=== PATIENT | female | born 1965 | race Two or more races ===

== ENCOUNTER 2020-02-21 18:58 | Emergency (ER) | payer OTHER ==
[~2020-02-21] VITALS: Ht 170.2 cm; Wt 75.0 kg
[2020-02-21] MEDS ORDERED: methylPREDNISolone SOD SUCC PF 125 MG/2 ML VIAL. IV ONE (19:30)
[2020-02-21] MEDS ORDERED: IV NORMAL SALINE 1000ML BAG 1,000 ML IV ONE (19:30)
[2020-02-21] MEDS ORDERED: FAMOTIDINE 20 MG/2 ML VIAL IVP ONE (19:30)
[2020-02-21] MEDS ORDERED: diphenhydrAMINE 50 MG/ML VIAL IVP ONE (19:30)
[2020-02-21] MEDS ORDERED: PRED20TA PO (20:01)
--- NOTE | 2020-02-21 20:02 | PHYS DOC ---
General Adult EDM: Chief Complaint: ALLERGIC REACTION HPI: HPI: Patient is a 54 year old female presents to the ED with a chief complaint of allergic reaction. Son who is a bowling ball mold assembler states that the symptoms are not present for the last 5 days. States that patient started lisinopril 3 months ago and the rash has been on and off since then. Patient denies new lotions, clothes, soaps, detergents. No food allergies per patient as well. There are no respiratory complaints. Patient complains of rash all over her body. Review of Systems: Review of Systems: Constitutional: Denies fever or chills. [] Eyes: Denies change in visual acuity. [] HENT: Denies nasal congestion or sore throat. [] Respiratory: Denies cough or shortness of breath. [] Cardiovascular: Denies chest pain or edema. [] Musculoskeletal: Denies back pain or joint pain. [] Integument: Complains of diffuse rash all over her body. Neurologic: Denies headache, focal weakness or sensory changes. [] Heart Score: Risk Factors: Risk Factors: DM, Current or recent (<one month) smoker, HTN, HLP, family history of CAD, obesity. Risk Scores: Score 0 - 3: 2.5% MACE over next 6 weeks - Discharge Home Score 4 - 6: 20.3% MACE over next 6 weeks - Admit for Clinical Observation Score 7 - 10: 72.7% MACE over next 6 weeks - Early Invasive Strategies Current Medications: Current Medications Medications (Trade) Dose Ordered Sig/Linda Start Time Stop Time Status Last Admin Dose Admin Diphenhydramine HCl (Benadryl) 25 mg 1X ONCE 02/21/20 19:30 02/21/20 19:31 DC 02/21/20 19:35 25 MG Famotidine (Pepcid Vial) 20 mg 1X ONCE 02/21/20 19:30 02/21/20 19:31 DC 02/21/20 19:35 20 MG Methylprednisolone Sodium Succinate (SOLU-Medrol 125MG VIAL) 125 mg 1X ONCE 02/21/20 19:30 02/21/20 19:31 DC 02/21/20 19:34 125 MG Sodium Chloride 1,000 ml @ 1,000 mls/hr 1X ONCE 02/21/20 19:30 02/21/20 20:29 02/21/20 19:35 1,000 MLS/HR Allergies: Allergies: Allergies Coded Allergies Type Severity Reaction Last Updated Verified No Known Drug Allergies 02/21/20 No Physical Exam: PE: Constitutional: Well developed, well nourished, no acute distress, non-toxic appearance. [] HENT: Normocephalic, atraumatic Eyes: EOMI Neck: Normal range of motion, Supple Respiratory: No respiratory distress Skin: Acute papular rash on her upper extremities lower extremities face and torso Neurologic: Alert and oriented X 3 EKG: EKG: [] Radiology/Procedures: Radiology/Procedures: [] Course & Med Decision Making: Course & Med Decision Making Ordered IV fluids, Solu-Medrol 125 mg IV, Benadryl 25 mg IV, Pepcid 20 mg IV. Patient was told to stop taking her lisinopril and follow-up with her PCP on Sunday for replacement blood pressure medication. Patient will be discharged home on oral steroids. Discussed plan of care with patient. Patient is instructed to follow up with PCP in one to 2 days. Appropriate discharge instructions given to patient to return to the ED or to seek immediate medical evaluation. Patient is instructed to return to the ED if symptoms worsen or if any concerns. Dragon Disclaimer: Dragon Disclaimer: This electronic medical record was generated, in whole or in part, using a voice recognition dictation system. Departure Departure Impression: Primary Impression: Allergic reaction Additional Impression: Dermatitis Disposition: HOME, SELF-CARE Condition: STABLE Referrals: NO PCP (PCP) Patient Instructions: Contact Dermatitis, Rash Additional Instructions: Discussed plan of care with patient. Patient is instructed to follow up with PCP in one to 2 days. Appropriate discharge instructions given to patient to return to the ED or to seek immediate medical evaluation. Patient is instructed to return to the ED if symptoms worsen or if any concerns. Scripts Prednisone (PREDNISONE) 20 Mg Tablet 2 TAB PO DAILY for 5 Days, #10 TAB Prov: JACQUI JOHNSTON DO 02/21/20 Justicifation of Admission Dx: Justifications for Admission: Justification of Admission Dx: JACQUI Mcgraw DO Feb 21, 2020 20:01
[2020-02-21 20:06] VITALS: BP 107/60
== END 2020-02-21 20:11 | disposition home or self-care (01) ==
LOC: ER 18:58
DX: T78.40XA Allergy, unspecified, initial encounter (principal); L30.9 Dermatitis, unspecified
CPT/HCPCS: 96374; 96375; 99285; J1200; J2930; J3490; J7030

== ENCOUNTER 2020-02-29 17:20 | Emergency (ER) | payer OTHER ==
[~2020-02-29] VITALS: Ht 165.1 cm; Wt 74.0 kg
[~2020-02-29 17:20] MED LIST: PRED20TA PO
[2020-02-29 17:41] VITALS: BP 148/87
[2020-02-29] MEDS ORDERED: PERM60CR11 TP (20:45)
[2020-02-29] MEDS ORDERED: HYDR25TA PO (20:45)
[2020-02-29] MEDS ORDERED: LORA0.5T96 PO (20:45)
--- NOTE | 2020-02-29 20:45 | PHYS DOC ---
Past Medical History Past Medical History: No Pertinent History Past Surgical History: No Surgical History Smoking Status: Never Smoker Alcohol Use: None General Adult EDM: Chief Complaint: SKIN RASH/ABSCESS HPI: HPI: Patient is a 54 year old female who presents with 1 month history of skin rash with itching. Patient states it originally started in the web of her fingers and has slowly progressed up to her axilla her waistline and down to her ankles. Patient states that she has been using prescribed prednisone and ointment that was given to her on her last visit here without relief. Patient denies fever chills, vision changes, any nasal congestion or sore throat, cough or shortness of breath. Patient denies chest pain or swelling of her extremities. Patient denies any abdominal pain, nausea, vomiting, diarrhea or constipation. Patient denies any back pain or joint pains. Patient denies any problems urinating. Patient denies headaches focal weaknesses or sensory changes. Patient denies any swollen glands. Patient states her only problem has the itching and the rash that she cannot get rid of. Patient states no one else living in her home has the same symptoms. Review of Systems: Review of Systems: Constitutional: Denies fever or chills. Eyes: Denies change in visual acuity. HENT: Denies nasal congestion or sore throat. Respiratory: Denies cough or shortness of breath. Cardiovascular: Denies chest pain or edema. GI: Denies abdominal pain, nausea, vomiting, bloody stools or diarrhea. : Denies dysuria. Musculoskeletal: Denies back pain or joint pain. Integument: Complains of rash at web of fingers bilateral hands, bilateral axilla, waistline, ankles, and groin area, also states this rash itches. Neurologic: Denies headache, focal weakness or sensory changes. Lymphatic: Denies swollen glands. Heart Score: Risk Factors: Risk Factors: DM, Current or recent (<one month) smoker, HTN, HLP, family history of CAD, obesity. Risk Scores: Score 0 - 3: 2.5% MACE over next 6 weeks - Discharge Home Score 4 - 6: 20.3% MACE over next 6 weeks - Admit for Clinical Observation Score 7 - 10: 72.7% MACE over next 6 weeks - Early Invasive Strategies Family History: Family History: Patient denies any family history significant to this visit. Current Medications: Patient denies current prescription medications. Allergies: Allergies: Patient denies allergies to medications. Allergies Coded Allergies Type Severity Reaction Last Updated Verified No Known Drug Allergies 02/21/20 No Physical Exam: PE: Constitutional: Well developed, well nourished, no acute distress, non-toxic appearance. HENT: Normocephalic, atraumatic, bilateral external ears normal, oropharynx moist, no oral exudates, nose normal. Eyes: PERRLA, EOMI, conjunctiva normal, no discharge. Pupils 3 mm. Neck: Normal range of motion, no tenderness, supple, no stridor. Cardiovascular:Heart rate regular rhythm, no murmur heart sounds S1-S2 without abnormalities per auscultation. Lungs & Thorax: Bilateral breath sounds clear to auscultation all lung gallagher. Abdomen: Bowel sounds normal all 4 quadrants, soft, no tenderness, no masses, no pulsatile masses. Skin: Warm, dry, no erythema, raised erythematous rash to webs of patient's fingers of bilateral hands wrists, AC, and axilla area of bilateral upper extremities around waistline and groin area and at ankles consistent with insect bites. Skin lesions are pimple-like in appearance with marked burrowing at patient's finger webs sites. Linear erythematous lines consistent with scratching without signs of infection. Back: No tenderness, no CVA tenderness. Extremities: No tenderness, no cyanosis, no clubbing, ROM intact, no edema. Neurologic: Alert and oriented X 3, normal motor function, normal sensory function, no focal deficits noted. Psychologic: Affect normal, judgement normal, mood normal. Current Patient Data: Vital Signs: Vital Signs Date Time Temp Pulse Resp B/P (MAP) Pulse Ox O2 Delivery O2 Flow Rate FiO2 02/29/20 17:41 99.1 99 18 148/87 (107) 98 Room Air 99.1 EKG: EKG: [] Radiology/Procedures: Radiology/Procedures: [] Course & Med Decision Making: Course & Med Decision Making Pertinent Labs and Imaging studies reviewed. (See chart for details) 54-year-old female presents to the emergency department complaining of an itchy rash that has been going on for approximately 1 month. Patient states that she was seen here a couple of weeks ago and was prescribed itching medicine and ointment to place on rash which has not helped. Patient states that since onset the rash is moved to her axilla and waistline and down to her ankles. Upon examination patient had several skin lesions with burrowing which were consistent and concerning for scabies infestation process. Discussed with patient findings and concerns for scabies. Patient became very anxious after discussing the possibility she may have scabies. Patient will be given a pr escription for 0.5 mg Ativan to help with acute anxiety related to scabies infestation. Discussed with patient prescriptions for and how to use at home along with cleansing of clothes and linens at home. Discussed with patient home medications to include Elimite, Atarax 25 mg p.o., 0.5 mg Ativan PRN count 10. Patient was agreeable and gave verbal understanding of home care instructions, return to ER precautions and concerns. Patient had no further questions or concerns patient discharged home with prescriptions. Dragon Disclaimer: Dragon Disclaimer: This electronic medical record was generated, in whole or in part, using a voice recognition dictation system. Departure Departure Impression: Primary Impression: Scabies Additional Impression: Medication refill Disposition: 01 HOME, SELF-CARE Condition: GOOD Referrals: NO PCP (PCP) Patient Instructions: Scabies Additional Instructions: Take medications as prescribed, return to the emergency department for further concerns, please see your doctor for further treatment and follow-up for your high blood pressure problems. Scripts Lorazepam (ATIVAN) 0.5 Mg Tablet 0.5 MG PO TID, #10 TAB 0 Refills Prov: FLORENTINO ESTEBAN APRN 02/29/20 Hydroxyzine Hcl (HYDROXYZINE HCL) 25 Mg Tablet 25 MG PO PRN Q4-6HRS, #10 TAB 0 Refills Prov: FLORENTINO ESTEBAN APRN 02/29/20 Permethrin (ELIMITE) 60 Gm Cream..g. 1 BRENDA TP ONCE, #60 GM 1 Refill massage into skin from head to soles of feet one time, leave on for 8-14 hours then remove by thorough washing Prov: FLORENTINO ESTEBAN APRN 02/29/20 Justicifation of Admission Dx: Justifications for Admission: Justification of Admission Dx: N/A FLORENTINO ESTEBAN APRN Feb 29, 2020 20:45
== END 2020-02-29 20:53 | disposition home or self-care (01) ==
LOC: ER 17:20
DX: B86 Scabies (principal); R21 Rash and other nonspecific skin eruption; L29.9 Pruritus, unspecified; L53.9 Erythematous condition, unspecified; Z76.0 Encounter for issue of repeat prescription
CPT/HCPCS: 99283